=== PATIENT | female | born 2000 | race Caucasian/White ===

== ENCOUNTER 2023-03-06 12:42 | Outpatient (CLI) | payer BC | END 2023-03-06 12:43 | disposition home or self-care (01) | LOC: CSHULT 12:42 | PROVIDERS: ATTEND Internal Medicine Gastroenterology | DX: K59.00 Constipation, unspecified (principal); R10.9 Unspecified abdominal pain; K58.9 Irritable bowel syndrome, unspecified; N92.0 Excessive and frequent menstruation with regular cycle; K92.1 Melena | CPT/HCPCS: 76700 ==